=== PATIENT | female | born 1955 | race Caucasian/White ===

== ENCOUNTER 2020-11-08 09:30 | Emergency (ER) | payer MEDICARE, OTHER ==
[~2020-11-08] VITALS: Ht 152.4 cm; Wt 71.4 kg
[2020-11-08 09:40] VITALS: BP 144/81
[2020-11-08] MEDS ORDERED: LORA10TA7 PO (09:46)
[2020-11-08] MEDS ORDERED: ALEN35TA41 PO (09:46)
[2020-11-08] MEDS ORDERED: METH-386 PO (09:46)
[2020-11-08] MEDS ORDERED: LOSA50TA37 PO (09:46)
[2020-11-08] MEDS ORDERED: ASPI-1450 PO (09:46)
[2020-11-08] MEDS ORDERED: ATOR20TA86 PO (09:46)
[2020-11-08] MEDS ORDERED: CHOL500043 PO (09:46)
[2020-11-08] MEDS ORDERED: METO-558 PO (09:46)
[2020-11-08] MEDS ORDERED: DOXYCYCLINE HYCLATE 100 MG TABLET PO ONE (10:45)
== END 2020-11-08 11:00 | disposition home or self-care (01) ==
LOC: EMS 09:30
DX: L03.312 Cellulitis of back [any part except buttock and flank] (principal); I10 Essential (primary) hypertension; E78.00 Pure hypercholesterolemia, unspecified; Z79.899 Other long term (current) drug therapy
CPT/HCPCS: 99284; Z7502; Z7610